=== PATIENT | male | born 1970 | race Caucasian/White ===

== ENCOUNTER 2018-01-11 05:27 | Observation (INO) | payer OTHER ==
--- NOTE | 2018-01-03 13:51 | GHP ---
[f rep st] HISTORY AND PHYSICAL CURRENT COMPLAINT: Left hip pain. HISTORY OF PRESENT ILLNESS: Mr. Gu is a 47-year-old male with a several year history of left hip pain worsening with use with time with no specific injury. X-ray exam reveals pwxn-[id number] osteoart hritic changes. He wishes to have surgery in order to resolve the problem. ALLERGIES: Prior allergies include codeine. MEDICATIONS: Current medications include fenofibrate, Nexium. PAST MEDICAL HISTORY: Prior medical problems include ulcers. PAST SURGICAL HISTORY: Prior surgeries include a right shoulder surgery, right knee surgery and left knee surgery. SOCIAL HISTORY: He has never been a smoker. He is a moderate drinker. PHYSICAL EXAMINATION: EYES: Pupils reactive to light. CHEST: Clear to auscultation. HEART: Regu lar rate and rhythm. ABDOMEN: Soft and nontender. EXTREMITIES: The left lower extremity reveals de creased range of motion with internal and external rotation with pain at the extremes of range of mot ion. IMAGING: X-ray exam reveals awde-ee-[id number] osteoarthritic changes. ASSESSMENT AND PLAN: The patient is status post left hip osteoarthritis. PLAN: Plan is to take him to the operating room to undergo a left total hip arthroplasty. /[id number]/MODL
[~2018-01-11 05:27] MED LIST: ACETAMINOPHEN 500 MG TAB PO ONE; PREGABALIN 150 MG CAP PO ONE; ROPIVACAINE 0.2% 80 MG, EPINEPHrine 0.2 MG, KETOROLAC TROMETHAMINE 30 MG, morphINE 10 M... IU ONE; TRANEXAMIC ACID 3,000 MG in NS (SYRINGE) 50 ML IRR ONE; ceFAZolin 2 GM/SWFI 2 GM/20 ML SYR IVP ONE
[2018-01-11] MEDS ORDERED: LR 1,000 ML IV ONE (05:45)
[2018-01-11] MEDS ORDERED: CALCIUM CHLORIDE 1 GM/10 ML INJ ONE ×2 (06:55→07:49)
[2018-01-11] MEDS ORDERED: BUPIVACAINE/EPI 0.5% 30 ML SDV ONE (06:55)
[2018-01-11] MEDS ORDERED: THROMBIN (BOVINE) 5,000 UNIT VIAL TP ONE ×2 (06:55→07:49)
[2018-01-11] MEDS ORDERED: BACITRACIN 50,000 UNITS/10 ML SYR IRR ONE (06:56)
[2018-01-11] MEDS ORDERED: POLYMYXIN B SULFATE 500,000 UNIT/10 ML SYR IRR ONE (06:56)
[2018-01-11] MEDS ORDERED: TRANEXAMIC ACID 3,000 MG/50 ML BAG IRR ONE (06:56)
[2018-01-11] MEDS ORDERED: MIDAZOLAM 2 MG/2 ML VIAL IVP ONE (06:57)
--- NOTE | 2018-01-11 06:59 | PDANEPAE ---
ANE History of Present Illness left hip OA for NOY ANE Past Medical History - Cardiovascular History Hx Hypertension: No Hx Arrhythmias: No Hx Chest Pain: No Hx Coronary Artery / Peripheral Vascular Disease: No Hx CHF / Valvular Disease: No Hx Palpitations: No Cardiovascular History Comment: high chol - Pulmonary History Hx COPD: No Hx Asthma/Reactive Airway Disease: No Hx Recent Upper Respiratory Infection: No Hx Oxygen in Use at Home: No Hx Sleep Apnea: No Sleep Apnea Screening Result - Last Documented: Negative - Neurologic History Hx Cerebrovascular Accident: No Hx Seizures: No Hx Dementia: No - Endocrine History Hx Diabetes: No Obesity: yes - Renal History Hx Renal Disorders: No - Liver History Hx Hepatic Disorders: No - Neurological & Psychiatric Hx Hx Neurological and Psychiatric Disorders: No - Cancer History Hx Cancer: No - Congenital Disorder History Hx Congenital Disorders: No - GI History Hx Gastrointestinal Disorders: No - Other Health History Other Health History: none - Chronic Pain History Chronic Pain: Yes (left hip) - Surgical History Prior Surgeries: no surgeries in the last 5 yrs ANE Review of Systems Review of systems is: negative Review of Systems: - Exercise capacity METS (RN): 4 METS ANE Patient History - Allergies Allergies/Adverse Reactions: codeine Allergy (Verified 12/28/17 11:06) extreme stomach aches - Home Medications Home medications: home medication list seen and reviewed Home Medications: FENOFIBRATE 160 mg PO DAILY 12/28/17 [Last Taken 01/10/18] Meloxicam 15 mg PO DAILY 12/28/17 [Last Taken 01/04/18] Nexium 24Hr 01/11/18 [Last Taken 12/28/17] - NPO status NPO Since - Liquids (Date): 01/10/18 NPO Since - Liquids (Time): 20:30 NPO Since - Solids (Date): 01/10/18 NPO Since - Solids (Time): 18:30 - Anes Hx Anes Hx: no prior problems - Smoking Hx Smoking Status: Never smoked - Family Anes Hx Family Hx Anesthesia Complications: none ANE Labs/Vital Signs - Vital Signs Blood Pressure: 116/83 Heart Rate: 82 Respiratory Rate: 16 O2 Sat (%): 94 Height: 177.8 cm Weight: 101.605 kg ANE Physical Exam - Airway Neck exam: FROM Mallampati Score: Class 1 Mouth exam: normal dental/mouth exam - Pulmonary Pulmonary: no respiratory distress - Cardiovascular Cardiovascular: regular rate and rhythym - ASA Status ASA Status: II ANE Anesthesia Plan Anesthesia Plan: spinal
[2018-01-11] MEDS ORDERED: ACETAMINOPHEN 500 MG TAB PO ONE ×3 (07:00)
[2018-01-11] MEDS ORDERED: ROPIVACAINE 0.2% 80 MG, EPINEPHrine 0.2 MG, KETOROLAC TROMETHAMINE 30 MG, morphINE 10 M... IU ONE (07:00)
[2018-01-11] MEDS ORDERED: ceFAZolin 2 GM/SWFI 2 GM/20 ML SYR IVP ONE (07:00)
[2018-01-11] MEDS ORDERED: TRANEXAMIC ACID 3,000 MG in NS (SYRINGE) 50 ML IRR ONE (07:00)
[2018-01-11] MEDS ORDERED: PREGABALIN 150 MG CAP PO ONE (07:00)
[2018-01-11] MEDS ORDERED: BUPI/epINEPH/KETOROLAC/morphINE IU ONE (07:00)
[2018-01-11] MEDS ORDERED: PROPOFOL/EMULSION 500 MG/50 ML BOTTLE IV ONE ×2 (07:05→08:05)
[2018-01-11] MEDS ORDERED: LIDOCAINE 2% 5 ML SDV ONE ×2 (07:05→07:11)
--- NOTE | 2018-01-11 07:15 | PDHPUP ---
History & Physical Update H&P update statement: This history and physical update is based on an assessment of the patient which was completed after admission or registration (within 24 hours), but prior to the surgery/procedure. H&P update: H&P reviewed & patient examined, no change in patient's condition since H&P completed
[2018-01-11] MEDS ORDERED: ESMOLOL HCL 100 MG/10 ML VIAL IV ONE (08:29)
[2018-01-11] MEDS ORDERED: PHENYLEPHRINE HCL 100 MCG/ML SYR ONE (08:29)
[2018-01-11] MEDS ORDERED: LR 500 ML IV PRN (08:58)
[2018-01-11] MEDS ORDERED: ALBUTEROL 3 ML DEYVIAL IH PRN (08:58)
[2018-01-11] MEDS ORDERED: ACETAMINOPHEN 500 MG TAB PO PRN (08:58)
[2018-01-11] MEDS ORDERED: ONDANSETRON 4 MG/2 ML VIAL IVP PRN ×2 (08:58→09:33)
[2018-01-11] MEDS ORDERED: LABETALOL HCL 5 MG/ML 20 ML MDV IVP PRN (08:58)
[2018-01-11] MEDS ORDERED: HYDROCODONE/APAP 5/325 TAB PO PRN (08:58)
[2018-01-11] MEDS ORDERED: fentaNYL 100 MCG/2 ML INJ IVP PRN (08:58)
[2018-01-11] MEDS ORDERED: PROMETHAZINE HCL 25 MG/ML INJ IVP PRN (08:58)
[2018-01-11] MEDS ORDERED: oxyCODONE IR 5 MG TAB PO PRN (08:58)
[2018-01-11] MEDS ORDERED: NALOXONE HCL 0.4 MG/ML INJ IVP PRN (08:58)
[2018-01-11] MEDS ORDERED: HYDROmorphONE/DILAUDID 2 MG/ML INJ IVP PRN (08:58)
--- NOTE | 2018-01-11 08:59 | POSTANESTH ---
Post Anesthetic Evaluation Cardiovascular Status: Normal, Stable Respiratory Status: Normal, Stable Level of Consciousness/Mental Status: Can Participate in Eval Pain Control: Adequate, Prn Tx Ordered Nausea/Vomiting Control: Adequate, Prn Tx Ordered Complications Possibly Related to Anesthesia: None Noted
[2018-01-11] MEDS ORDERED: TAPENTADOL HCL 50 MG TAB PO PRN (09:33)
[2018-01-11] MEDS ORDERED: ONDANSETRON DISINTEGRATING 4 MG TAB PO PRN (09:33)
[2018-01-11] MEDS ORDERED: diphenhydrAMINE 25 MG CAP PO PRN (09:33)
[2018-01-11] MEDS ORDERED: PROMETHAZINE HCL 25 MG SUPPR PR PRN (09:33)
[2018-01-11] MEDS ORDERED: METOCLOPRAMIDE 10 MG/2 ML VIAL IVP PRN (09:33)
[2018-01-11] MEDS ORDERED: LACTULOSE 20 GM/30 ML UDCUP PO PRN (09:33)
[2018-01-11] MEDS ORDERED: POLYETHYLENE GLYCOL 3350 17 GM PKT PO PRN (09:33)
[2018-01-11] MEDS ORDERED: DIPHENOXYLATE/ATROPINE LOMOTIL 1 TAB PO PRN (09:33)
[2018-01-11] MEDS ORDERED: TEMAZEPAM 15 MG CAP PO PRN (09:33)
[2018-01-11] MEDS ORDERED: BISACODYL 10 MG SUPP PR PRN (09:33)
[2018-01-11] MEDS ORDERED: MAGNESIUM HYDROXIDE 30 ML UDCUP PO PRN (09:33)
[2018-01-11] MEDS ORDERED: CYCLOBENZAPRINE 10 MG TAB PO PRN (09:33)
--- NOTE | 2018-01-11 09:33 | POSTOPPROG ---
Post Op Note Date of Operation: 01/11/18 Surgeon: Bharati Thompson Commercial Sewing Instructor: gómez Anesthesia: Epidural, IV Sedation Pre-op Diagnosis: l hip oa Procedure: l zuly with fluoro Inf/Abcess present in the surg proc area at time of surgery?: No Depth: Deep Incisional (Fascial) EBL: 100-500
[2018-01-11] MEDS ORDERED: fentaNYL 100 MCG/2 ML INJ ONE (09:54)
[2018-01-11] MEDS ORDERED: HYDROmorphONE/DILAUDID 2 MG/ML INJ ONE (09:55)
[2018-01-11] MEDS ORDERED: LR 1,000 ML IV SCH (10:00)
[2018-01-11] MEDS: KETOROLAC 30 MG/1 ML SDV IVP SCH ×2 (11:17→17:28)
[2018-01-11] MEDS: traMADol 50 MG TAB PO SCH ×2 (11:18→17:27)
--- NOTE | 2018-01-11 11:35 | GOP ---
[f rep st] OPERATIVE REPORT DATE OF OPERATION: 01/11/2018 SURGEON: Bharati Thompson MD REPRODUCTION ARTIST: Helio Echevarria, certified P.A., whose presence was medically necessary. ANESTHESIA: By sedation with epidural nerve block. PREOPERATIVE DIAGNOSIS: Left hip osteoarthritis. POSTOPERATIVE DIAGNOSIS: Left hip osteoarthritis. PROCEDURE PERFORMED: Left total hip arthroplasty with fluoroscopy. FINDINGS: INDICATIONS: A 47-year-old, very active male with progressive left hip pain worsening with use and w ith time despite multiple conservative measures. X-ray exam reveals hdfz-ex-mnhh osteoarthritic lizarraga ges with a valgus angle to his hip. He wishes to have surgery in order to resolve the problem. DESCRIPTION OF PROCEDURE: Patient brought to the operating room after the left side had been identif ied as correct side by the patient, nurse and physician. Once in the operating room he was given an epidural nerve block and then given IV sedation. He was placed in a well-padded traction table with a well-padded perineal post. Both legs placed in appropriate leg agarwal. Fluoroscopy was used to en sure proper positioning of the pelvis. Once in proper position the arch table was locked into place. The left hip and flank were then sterilely prepped and draped in usual fashion using a JOSE solution . Once prepped and draped, incision was made starting 2 cm lateral and inferior to the ASIS and head ing in a 15-degree posterior direction. Sharp dissection carried down through the skin and subcutane ous layers, with bleeding controlled using electrocautery. Sharp dissection was carried through the fascia overlying the TFL which was cut in line with its fibers. The muscle belly was retracted later ally. Deeper dissection was carried to the fascial sheath identifying the circumflex vessels below w hich were also cauterized. Deeper dissection was carried over the hip capsule, with a blunt Cobra re tractor placed in superior and inferior portion of the femoral neck and placed on the ante rior portion of the acetabulum. The anterior capsule was excised gaining entrance into the capsule i tself. The Kober retractors then placed intra-articularly. Oscillating saw was used to cut across t he femoral neck just above the intertrochanteric line. The leg was externally rotated 40 degrees and a corkscrew was used to remove the femoral head. The pulvinar as well as the acetabular labrum was removed from around the acetabulum. Sequential reamers were used starting at a size 49 and extending up to a size 57 before achieving good bleeding bone and a good peripheral fit. A size 57 trial was noted to fit very securely. This position was checked under fluoroscopy. Therefore a size 58 triden t II Tritanium cluster hole acetabular shell from [employer] was put into place with a screw placed supe riorly and another 1 posteriorly with a manhole cover placed at its base. The cup was thoroughly irr igated with antibiotic solution. Then had a 58 x 32 mm ceramic liner placed within the cup. Once lo cked into place adequately attention was turned to the femur. The femur was externally rotated 90 de grees. Soft tissue dissection was done with the capsule of the anterior superior portion of the femo ral neck. Once an adequate capsular release had been performed, the leg was able to be placed in ext ension and abduction. Once in position a curette was used to remove medullary bone from the proximal portion of the femur and a rongeur used to remove the superior portion of the femoral neck. Canal f kavon was placed within the femur and sequential broaches were used starting at size 0 and extending up to a size 7 which was noted to fit well. Trial reduction was performed. Fluoroscopy was used to ensure adequate fill of the proximal femur by the femoral component and length it was noted that the size 7 femoral component fit well. Therefore a size 7 Accolade II 127-degree neck was put into place and noted to fit securely. Multiple trials were done with different heads and noted that a +4 head seemed to fit best. Therefore, a 32+ 4 ceramic head was placed on the trunnion after the trunnion magaña d been cleaned and dried. Once in position, the wound was thoroughly irrigated with antibiotic solut ion with a joint cocktail injected in the posterior portion of the capsule in the anterior portion of the acetabular and proximal femur. Tranexamic acid was then irrigated into the wound. The wound wa s then closed using 0 Vicryl suture for the fascia layer overlying the TFL. Once the fascial layer w as closed plasma gel was injected around the hip joint. 0 Vicryl and 2-0 Vicryl suture used to close subcutaneous layers and a 3-0 V-Loc suture in a running subcuticular stitch was used to close the sk in. 30 cc of Marcaine was infused around the actual skin incision itself. The wound was then dresse d with Steri-Strips, Xeroform, 4 x 4, and Tegaderm. He was completely undraped in the operating room , had both legs taken as leg agarwal, peroneal post was removed. His leg lengths were noted to be cee rly equal. He was then transferred onto a bed, and sent to recovery room in good condition. /[id number]/MODL
[2018-01-11 12:17] VITALS: RESP 16
--- NOTE | 2018-01-11 12:17 | PDMN ---
Medical Necessity Medical necessity: S560 hip arthroplasty- INPT only : L NOY
[2018-01-11] MEDS ORDERED: VANCOMYCIN 1.5 GM in NS 250 ML IV ONE (16:00)
[2018-01-11 16:10] VITALS: BP 123/69; PULSE 79; TEMP 97.6; O2SAT 95
--- NOTE | 2018-01-11 16:42 | PDIAF ---
- Medication Management Discharge Medications: Medications to Continue on Transfer Cyclobenzaprine [Flexeril 10 MG (*)] 5 mg PO HS 01/11/18 [Last Taken Unknown] Ergocalciferol [Vitamin D2 (*)] 50,000 unit PO SA 01/11/18 [Last Taken Unknown] FENOFIBRATE 160 mg PO DAILY 01/11/18 [Last Taken Unknown] Rivaroxaban [Xarelto 10mg (*)] 10 mg PO DAILY 01/11/18 [Last Taken Unknown] traMADol [Ultram 50 mg (*)] 50 mg PO Q6HRS tab 01/11/18 [Last Taken Unknown] Discharge Medications: Refer to the Discharge Home Medication list for PRN reason. - Orders Services needed: Physical Therapy Diet Recommendation: no restrictions on diet Diet Texture: Regular Texture Diet - Follow Up Care Current Providers and Referrals: GABE SMITH [Primary Care Provider] -
--- NOTE | 2018-01-11 16:47 | ASMTCASEMG ---
Living Arrangements What is your living Answers: Alone arrangement? Who do you live with? Type Of Residence What kind of residence do Answers: House you live in? Discharge Plan Comments Coordination Status Comments Notes: Pt is a 47 y/o man admitted for left hip pain. Pt had a left total hip surgery. Dr. Thompson is recommending HC. CM met w/ pt and family for dispo planning. Pt does not think he needs HC at this time. CM available for changes. Plan: Independent Date Signed: 01/11/2018 04:46 PM Electronically Signed By:DONI Dooley
[2018-01-11] MEDS ORDERED: FAMOTIDINE 20 MG TAB PO SCH (21:00)
[2018-01-11] MEDS ORDERED: SENNOSIDES/DOCUSATE SODIUM TAB PO SCH (21:00)
== END 2018-01-11 19:00 | disposition home or self-care (01) ==
LOC: FSGY 05:27 → F3N 10:14 → OBSVTOIN 12:15 → INTOOBSV 12:15
PROVIDERS: ADMIT Orthopaedic Surgery; ATTEND Orthopaedic Surgery
PROC: 0SRB03A Replacement of Left Hip Joint with Ceramic Synthetic Substitute, Uncemented, Open Approach (ICD-10-PCS; principal; 2018-01-11 07:15)
DX: M16.12 Unilateral primary osteoarthritis, left hip (principal); E78.5 Hyperlipidemia, unspecified
CPT/HCPCS: 97116-GP; 97161-GP; 97166-GO; 97535-GO; C1713; G0378; J0171; J0690; J1170; J1885; J2250; J2270; J2370; J2704; J2795; J3010; J3370

== ENCOUNTER → 2018-08-30 | Outpatient (CLI) | payer OTHER | LOC: CIMAGING 14:17 | PROVIDERS: ATTEND Orthopaedic Surgery | DX: T84.038A Mechanical loosening of other internal prosthetic joint, initial encounter (principal) | CPT/HCPCS: 73700-PO ==

== ENCOUNTER → 2018-09-06 | Outpatient (CLI) | payer OTHER | LOC: FIMAGING 07:55 | PROVIDERS: ATTEND Orthopaedic Surgery | DX: T84.031A Mechanical loosening of internal left hip prosthetic joint, initial encounter (principal) | CPT/HCPCS: A9503 ==

== ENCOUNTER 2018-12-04 10:42 | Inpatient (IN) | payer OTHER ==
--- NOTE | 2018-11-29 18:58 | GHP ---
[f rep st] HISTORY AND PHYSICAL CURRENT COMPLAINTS: Left hip pain. HISTORY OF PRESENT ILLNESS: The patient is a 48-year-old male who had previously undergone a left to warren hip arthroplasty that initially had done well. He developed some start-up pain within the femur. A recent bone scan revealed some loosening of the femoral prosthesis. He would like it revised in order to resolve his pain. ALLERGIES: Include codeine. CURRENT MEDICATIONS: Include fenofibrate, and Ketoralac, with Nexium. PRIOR MEDICAL PROBLEMS: Include ulcers. PRIOR SURGERIES: Include right shoulder, left knee, right knee, hand x2, and a total hip arthroplast y. SOCIAL HISTORY: He has never been a smoker. He is a social drinker. PHYSICAL EXAMINATION: HEENT: The patient's pupils are equal, round, react to light. CHEST: Clear to auscultation. HEART: Regular rate and rhythm. ABDOMEN: Soft and nontender. EXTREMITIES: He i s neurologically intact distally into his left lower extremity. He has pain to passive range of shannon on through the hip with 5/5 strength through the hip, however. ASSESSMENT AND PLAN: Patient is status post left total hip arthroplasty with femoral loosening. Kaushik ying is taking him to the operating room to undergo a femoral revision. /[id number]/MODL
[~2018-12-04 10:42] MED LIST changes: -ACETAMINOPHEN 500 MG TAB PO ONE; -PREGABALIN 150 MG CAP PO ONE; -ceFAZolin 2 GM/SWFI 2 GM/20 ML SYR IVP ONE
[2018-12-04] MEDS ORDERED: CALCIUM CHLORIDE 1 GM/10 ML INJ ONE (10:44)
[2018-12-04] MEDS ORDERED: THROMBIN (BOVINE) 5,000 UNIT VIAL TP ONE (10:44)
[2018-12-04] MEDS ORDERED: BUPIVACAINE/EPI 0.5% 30 ML SDV ONE (10:44)
[2018-12-04] MEDS ORDERED: BACITRACIN 50,000 UNITS/10 ML SYR IRR ONE (10:45)
[2018-12-04] MEDS ORDERED: POLYMYXIN B SULFATE 500,000 UNIT/10 ML SYR IRR ONE (10:45)
[2018-12-04] MEDS ORDERED: TRANEXAMIC ACID 3,000 MG/50 ML BAG IRR ONE (10:47)
[2018-12-04] MEDS ORDERED: PREGABALIN 150 MG CAP PO ONE (11:02)
[2018-12-04] MEDS ORDERED: LIDOCAINE 1% 2 ML INJ ID PRN (11:02)
[2018-12-04] MEDS ORDERED: ACETAMINOPHEN 500 MG TAB PO ONE (11:02)
[2018-12-04] MEDS ORDERED: LR 1,000 ML IV SCH ×2 (11:02→16:30)
[2018-12-04] MEDS ORDERED: LR 1,000 ML IV ONE (11:02)
[2018-12-04] MEDS ORDERED: ceFAZolin 2 GM/DEXTROSE 100 ML IV ONE (11:02)
[2018-12-04] MEDS ORDERED: MIDAZOLAM 2 MG/2 ML VIAL IVP ONE (11:34)
--- NOTE | 2018-12-04 11:34 | PDANEPAE ---
ANE History of Present Illness L NOY ANE Past Medical History - Cardiovascular History Hx Hypertension: No Hx Arrhythmias: No Hx Chest Pain: No Hx Coronary Artery / Peripheral Vascular Disease: No Hx CHF / Valvular Disease: No Hx Palpitations: No Cardiovascular History Comment: high chol - Pulmonary History Hx COPD: No Hx Asthma/Reactive Airway Disease: No Hx Recent Upper Respiratory Infection: No Hx Oxygen in Use at Home: No Hx Sleep Apnea: No Sleep Apnea Screening Result - Last Documented: Negative - Neurologic History Hx Cerebrovascular Accident: No Hx Seizures: No Hx Dementia: No - Endocrine History Hx Diabetes: No - Renal History Hx Renal Disorders: No - Liver History Hx Hepatic Disorders: No - Neurological & Psychiatric Hx Hx Neurological and Psychiatric Disorders: No - Cancer History Hx Cancer: No - Congenital Disorder History Hx Congenital Disorders: No - GI History Hx Gastrointestinal Disorders: No - Other Health History Other Health History: none - Chronic Pain History Chronic Pain: Yes (left hip) - Surgical History Prior Surgeries: LT TOTAL HIP 12/2017. RT INDEX FINGER ORIF. RICHIE KNEE SCOPES ANE Review of Systems Review of systems is: negative Review of Systems: - Exercise capacity METS (RN): 4 METS ANE Patient History - Allergies Allergies/Adverse Reactions: codeine Allergy (Verified 12/28/17 11:06) extreme stomach aches - Home Medications Home medications: home medication list seen and reviewed Home Medications: Esomeprazole Mag Trihydrate [Nexium] 40 mg PO DAILY PRN 11/19/18 [Last Taken Unknown] Ibuprofen [Motrin (*)] 200 mg PO DAILY PRN 11/19/18 [Last Taken Unknown] oxyCODONE IR [Oxycodone Ir (*)] 5 mg PO Q4HRS PRN 11/26/18 [Last Taken Unknown] - NPO status NPO Since - Liquids (Date): 12/04/18 NPO Since - Liquids (Time): 09:00 NPO Since - Solids (Date): 12/03/18 NPO Since - Solids (Time): 19:00 - Anes Hx Anes Hx: no prior problems - Smoking Hx Smoking Status: Never smoked - Family Anes Hx Family Anes Hx: none Family Hx Anesthesia Complications: none ANE Labs/Vital Signs - Vital Signs Vital Signs: reviewed preoperatively; see RN documention for details Blood Pressure: 116/75 Heart Rate: 72 Respiratory Rate: 18 O2 Sat (%): 96 Height: 177.8 cm Weight: 104.326 kg ANE Physical Exam - Airway Neck exam: FROM Mallampati Score: Class 2 Mouth exam: normal dental/mouth exam - Pulmonary Pulmonary: no respiratory distress - Cardiovascular Cardiovascular: regular rate and rhythym - ASA Status ASA Status: II ANE Anesthesia Plan Anesthesia Plan: MAC, spinal
--- NOTE | 2018-12-04 12:24 | PDHPUP ---
History & Physical Update H&P update statement: This history and physical update is based on an assessment of the patient which was completed after admission or registration (within 24 hours), but prior to the surgery/procedure. H&P update: no change in patient's condition since H&P completed
[2018-12-04] MEDS ORDERED: PROPOFOL/EMULSION 500 MG/50 ML BOTTLE IV ONE ×3 (12:41→15:03)
[2018-12-04] MEDS ORDERED: LIDOCAINE 2% 100 MG/5 ML SYR ONE (12:41)
[2018-12-04] MEDS ORDERED: BUPIVACAINE/DEXTROSE 7.5MG/ML 2 ML SPINAL AMP SP ONE (12:41)
[2018-12-04] MEDS ORDERED: HYDROCODONE/APAP 5/325 TAB PO PRN (14:10)
[2018-12-04] MEDS ORDERED: MEPERIDINE 25 MG/0.5 ML AMP IVP PRN (14:10)
[2018-12-04] MEDS ORDERED: LABETALOL HCL 5 MG/ML 20 ML MDV IVP PRN (14:10)
[2018-12-04] MEDS ORDERED: fentaNYL 100 MCG/2 ML INJ IVP PRN (14:10)
[2018-12-04] MEDS ORDERED: PROMETHAZINE HCL 25 MG/ML INJ IVP PRN ×2 (14:10→16:12)
[2018-12-04] MEDS ORDERED: HYDROmorphONE/DILAUDID 2 MG/ML INJ IVP PRN (14:10)
[2018-12-04] MEDS ORDERED: NALOXONE HCL 0.4 MG/ML INJ IVP PRN (14:10)
[2018-12-04] MEDS ORDERED: ONDANSETRON 4 MG/2 ML VIAL IVP PRN ×2 (14:10→16:12)
[2018-12-04] MEDS ORDERED: oxyCODONE IR 5 MG TAB PO PRN (14:10)
[2018-12-04] MEDS ORDERED: DEXAMETHASONE 4 MG/ML VIAL IVP PRN (14:10)
--- NOTE | 2018-12-04 14:11 | POSTANESTH ---
Post Anesthetic Evaluation Cardiovascular Status: Normal, Stable, Similar to Pre-Op Cond Respiratory Status: Normal, Stable, Similar to Pre-op Cond. Level of Consciousness/Mental Status: Can Participate in Eval, Mildly Sleepy, Arousable Pain Control: Adequate, Prn Tx Ordered Nausea/Vomiting Control: Adequate, Prn Tx Ordered Complications Possibly Related to Anesthesia: None Noted
[2018-12-04] MEDS ORDERED: fentaNYL 100 MCG/2 ML INJ ONE ×2 (15:02→16:48)
[2018-12-04] MEDS ORDERED: TAPENTADOL HCL 50 MG TAB PO PRN (16:12)
[2018-12-04] MEDS ORDERED: BISACODYL 10 MG SUPP PR PRN (16:12)
[2018-12-04] MEDS ORDERED: METOCLOPRAMIDE 10 MG/2 ML VIAL IVP PRN (16:12)
[2018-12-04] MEDS ORDERED: PROMETHAZINE HCL 25 MG SUPPR PR PRN (16:12)
[2018-12-04] MEDS ORDERED: diphenhydrAMINE 25 MG CAP PO PRN (16:12)
[2018-12-04] MEDS ORDERED: LACTULOSE 20 GM/30 ML UDCUP PO PRN (16:12)
[2018-12-04] MEDS ORDERED: MAGNESIUM HYDROXIDE 30 ML UDCUP PO PRN (16:12)
[2018-12-04] MEDS ORDERED: ONDANSETRON DISINTEGRATING 4 MG TAB PO PRN (16:12)
[2018-12-04] MEDS ORDERED: CYCLOBENZAPRINE 10 MG TAB PO PRN (16:12)
[2018-12-04] MEDS ORDERED: DIPHENOXYLATE/ATROPINE LOMOTIL 1 TAB PO PRN (16:12)
[2018-12-04] MEDS ORDERED: POLYETHYLENE GLYCOL 3350 17 GM PKT PO PRN (16:12)
[2018-12-04] MEDS ORDERED: TEMAZEPAM 15 MG CAP PO PRN (16:12)
--- NOTE | 2018-12-04 16:12 | POSTOPPROG ---
Post Op Note Date of Operation: 12/04/18 Surgeon: Bharati Thompson Glass Calibrator: whitney Anesthesia: Epidural, IV Sedation Pre-op Diagnosis: l zuly loosening Procedure: l zuly revision stem Inf/Abcess present in the surg proc area at time of surgery?: No Depth: Deep Incisional (Fascial) EBL: 100-500
--- NOTE | 2018-12-04 17:16 | GOP ---
[f rep st] OPERATIVE REPORT DATE OF OPERATION: 12/04/2018 SURGEON: Bharati Thompson MD TILTROTOR CREW CHIEF: Ruth Keen PA-C, whose presence was medically necessary. ANESTHESIA: Epidural plus IV sedation. PREOPERATIVE DIAGNOSIS: 1. Left total hip arthroplasty stem loosening. 2. Right index finger fibrosis. POSTOPERATIVE DIAGNOSIS: Left total hip arthroplasty stem loosening. PROCEDURE PERFORMED: 1. Left total hip arthroplasty stem revision with fluoroscopy. 2. Right index finger manipulation under anesthesia. FINDINGS: INDICATIONS: This is a 48-year-old male who had previously undergone a left total hip arthroplasty a nd continued to have thigh pain and start-up pain when using it. X-rays showed no issues; however, b one scan revealed probable loosening of the stem but not of the acetabular cup. It was decided to do a revision in order to relieve his symptomatology. DESCRIPTION OF PROCEDURE: The patient was brought to the operating room and the left side had been i dentified as the correct side by the patient, nurse and physician. Once in the operating room, he wa s given epidural nerve block and then placed supine on the traction table with a well-padded peroneal post and both legs placed in appropriate leg agarwal. Fluoroscopy was used to ensure proper position ing of the legs. Once in proper position, the arch table was locked into place, and the left hip and flank were sterilely prepped and draped in the usual fashion using GSI solution. Once prepped and d raped, the scar was excised on the anterior portion of his leg with sharp dissection carried down thr ough the skin and subcutaneous layers with bleeding controlled using electrocautery. Sharp and blunt dissection was carried down through the fascia layers identifying the fascial sheath for the tensor fascia tao which was incised with the muscle belly retracted laterally. There was an abundant amoun t of scar tissue around the actual hip joint itself with overgrowth of scar around the capsule. This was excised in order to gain access into the hip. The scar tissue was removed in order to gain flex ibility into the hip to the point that it was able to be dislocated and placed in extension and abduc tion. The head was removed. Attention was turned to the stem. Flexible osteotomes were passed along between the bone metal inter face, and a slap hammer was used to remove the stem. The stem was able to be removed in its entirety without loss of bone. The inner portion of the femur was then debrided of fibrous tissue. Sequenti al broaches were used starting at a size 7 extending up to a size 8 which was noted to fit securely. An attempt at a size 9 was tried, but it was way too big to even attempt any meaningful reaming of t he proximal femur. Therefore, a size 8 trial was left in place. Trial reduction was performed. Not ed to have good fill both distally and proximally within the femur. Therefore, the hip was re-disloc ated. The trial was removed. An Accolade II 132-degree size-8 stem was put into place and noted to fit securely. Trial reduction was again performed. Noted a +4 head seemed to give good length and g ood stability through the hip as checked by fluoroscopy. Therefore, the hip was re-dislocated, place d in extension and adduction. The trunnion was washed and dried and a 32 +4 ceramic head from [employer] was put into place. Hip was relocated and put into place. He was noted to have good leg length. The joint cocktail was injected into the posterior capsule along the periosteum of the femur and into the muscle of the TFL. Tranexamic acid was irrigated through the wound. The wound was then closed in layers to include 0 Vicryl suture for the fascial layers and deep subcutaneous layers, 2-0 Vicryl suture for the subcutaneous layers, and a 3-0 V-Loc suture in a running subcuticular stitch for the s kin. 30 cc of Marcaine was infused around the actual skin wound itself. The wound was dressed with Steri-Strips, Xeroform, 4 x 4, and Tegaderm. The patient was completely undraped in the operating ro om. He had asked to have his left index finger manipulated secondary to fibrosis of the PIP joint. This was manipulated achieving 0 to 90 degrees of flexion across the PIP joint. The patient was then woken up, transferred onto a stretcher, and sent to recovery room in good condition. /[id number]/MODL
--- NOTE | 2018-12-04 17:25 | PDMN ---
Medical Necessity Medical necessity: Pt meets inpt criteria per md order and [facility] [place] S-560, Hip Arthroplasty, A-2 days, [facility] IP only list. 48y/o s/p L NOY w/femoral loosening and pain admitted for L NOY revision and post-op care.
[2018-12-04] MEDS: ACETAMINOPHEN 325 MG TAB PO SCH ×2 (17:49→23:31)
[2018-12-04] MEDS: traMADol 50 MG TAB PO SCH ×2 (17:50→23:31)
[2018-12-04] MEDS: oxyCODONE IR 5 MG TAB PO PRN (19:01)
[2018-12-04] MEDS: ceFAZolin 2 GM/DEXTROSE 100 ML IV SCH (21:56)
[2018-12-04] MEDS: FAMOTIDINE 20 MG TAB PO SCH (21:56)
[2018-12-04] MEDS: SENNOSIDES/DOCUSATE SODIUM TAB PO SCH (21:56)
[2018-12-05] MEDS ORDERED: PANTOPRAZOLE SODIUM 40 MG TAB PO PRN (00:05)
[2018-12-05] MEDS: oxyCODONE IR 5 MG TAB PO PRN ×4 (01:58→13:23)
[2018-12-05] MEDS: traMADol 50 MG TAB PO SCH ×2 (05:18→12:24)
[2018-12-05] MEDS: ACETAMINOPHEN 325 MG TAB PO SCH ×2 (05:19→12:23)
[2018-12-05] MEDS: ceFAZolin 2 GM/DEXTROSE 100 ML IV SCH (05:21)
[2018-12-05] MEDS: SENNOSIDES/DOCUSATE SODIUM TAB PO SCH (08:37)
[2018-12-05] MEDS: FAMOTIDINE 20 MG TAB PO SCH (08:37)
[2018-12-05] MEDS ORDERED: RIVAROXABAN 10 MG TAB PO SCH (09:00)
[2018-12-05 11:43] VITALS: BP 118/80
--- NOTE | 2018-12-05 11:56 | ASMTCMCOM ---
CM Note CM Note Notes: Pt had planned femoral revision. PT rec outpatient, OT rec home. Pt resides alone, pt parents to stay with him and girlfriend often stays w pt. Anticipate pt will d/c when medically stable, no CM d/c needs identified. CM available for changes/needs. Date Signed: 12/05/2018 11:56 AM Electronically Signed By:KIMBERLY Robles
--- NOTE | 2018-12-05 15:25 | ASMTLACE ---
LACE Length of stay for Answers: 2 days current admission Acuity / Level of Answers: Yes Care: Did the patient have an inpatient admission? Comorbidities - select Answers: Opioid dependence all that apply / Chronic pain # of Emergency department Answers: 0 visits in the last 6 months Score: 9 Date Signed: 12/05/2018 03:24 PM Electronically Signed By:KIMBERLY Robles
== END 2018-12-05 13:30 | disposition home or self-care (01) | DRG 468 ==
LOC: F3N 10:42
PROVIDERS: ADMIT Orthopaedic Surgery; ATTEND Orthopaedic Surgery
DX: T84.031A Mechanical loosening of internal left hip prosthetic joint, initial encounter (principal); M24.641 Ankylosis, right hand; E78.00 Pure hypercholesterolemia, unspecified
CPT/HCPCS: 97110-GP; 97116-GP; 97161-GP; 97165-GO; J0171; J0690; J1885; J2001; J2250; J2270; J2704; J2795; J3010